=== PATIENT | male | born 1990 | race Caucasian/White ===

== ENCOUNTER 2022-05-11 17:19 | Emergency (ER) | payer SELFPAY ==
[~2022-05-11] VITALS: Ht 175.3 cm; Wt 122.5 kg
[2022-05-11 17:58] LABS: BASOPHILS % (AUTO) 0 % (0-10); EOSINOPHILS # (AUTO) 0.1 10^3/uL (0.0-0.3); EOSINOPHILS % (AUTO) 1 % (0-10); HEMATOCRIT 46 % (40-54); HEMOGLOBIN 15.9 g/dL (13.3-17.7); LYMPHOCYTES # (AUTO) 3.9 10^3/uL (1.0-4.0); LYMPHOCYTES % (AUTO) 42 % (12-44); MEAN CORPUSCULAR HEMOGLOBIN 31 pg (25-34); MEAN CORPUSCULAR HGB CONC 34 g/dL (32-36); MEAN CORPUSCULAR VOLUME 90 fL (80-99); MEAN PLATELET VOLUME 10.9 fL (9.0-12.2); MONOCYTES # (AUTO) 0.7 10^3/uL (0.0-1.0); MONOCYTES % (AUTO) 7 % (0-12); NEUTROPHILS # (AUTO) 4.7 10^3/uL (1.8-7.8); NEUTROPHILS % (AUTO) 50 % (42-75); PLATELET COUNT 282 10^3/uL (130-400); WHITE BLOOD COUNT 9.4 10^3/uL (4.3-11.0)
[2022-05-11 18:02] LABS: PROTHROMBIN TIME PATIENT 13.1 SEC (12.2-14.7)
[2022-05-11 18:09] LABS: ALBUMIN 4.5 GM/DL (3.2-4.5); POTASSIUM 4.1 MMOL/L (3.6-5.0)
[2022-05-11 18:11] LABS: TOTAL PROTEIN 8.2 GM/DL (6.4-8.2)
[2022-05-11 18:13] LABS: BILIRUBIN,TOTAL 0.5 MG/DL (0.1-1.0)
[2022-05-11 18:15] LABS: CREATININE SERUM 1.01 MG/DL (0.60-1.30)
[2022-05-11] MEDS ORDERED: ASPIRIN 81 MG CHEW (CHILDREN'S ASA) PO ONE (18:30)
[2022-05-11] MEDS ORDERED: LIDOCAINE 2% VISCOUS 15 ML UDC PO ONE (18:30)
[2022-05-11] MEDS ORDERED: ANTACID SUSP 30 ML UDC (MYLANTA) PO ONE (18:30)
[2022-05-11] MEDS ORDERED: FAMOTIDINE 20 MG (PEPCID) TABLET PO ONE (18:30)
--- NOTE | 2022-05-11 18:31 | ED Chest Pain ---
General Chief Complaint: Chest Pain Stated Complaint: CP,L SHOULDER/BACK PAIN, SOB Nursing Triage Note: pt ambulatory to room. pt reports having left shoulder and shoulder blade pain since wednesday. pt reports in addition to this pain, today while at work, around 1300, he got chest pain in the sternal area that he rates as a 4 or 5. pt reports the cp has "came and gone" since then and rates it a dull pain, a 1 or 2 now. pt states he has had no injury Source: patient Exam Limitations: no limitations (RODY CARRILLO) History of Present Illness Date Seen by Provider: May 11, 2022 Time Seen by Provider: 17:31 Initial Comments Patient to the ER by private conveyance with chief complaint of chest pain in his substernal chest radiating through to his left shoulder blade been going on since this morning, worse at work. Not any better at rest. It comes and goes about a 1 or 2 out of 10 right now. Worst it is a 4-5 out of 10. Worse when he takes a deep breath or moves around. No history of heart disease, family history of coronary disease. He has no history of hypertension, hyperlipidemia, diabetes. He does not smoke. He does drink usually 10 beers a day with his last beer being on Wednesday. He had his last whiskey drink 6 days ago. He is not having any nausea, vomiting, fevers, diarrhea, rash. No history of COPD but he does have asthma. He took his breathing treatment with no avail. He has a history of GERD and he took his GERD medicines routinely and they did not help. He tried Gas-X and ibuprofen without significant relief of pain. (RODY CARRILLO) Allergies and Home Medications Allergies Coded Allergies: No Known Drug Allergies (Unverified , 05/11/22) Patient Home Medication List Home Medication List Reviewed: Yes (RODY CARRILLO) Review of Systems Review of Systems Constitutional: No chills, No diaphoresis EENTM: No Blurred Vision, No Double Vision Respiratory: Denies Cough, Denies Shortness of Air Cardiovascular: See HPI, Chest Pain; Denies Lightheadedness Gastrointestinal: Denies Abdominal Pain, Denies Blood Streaked Stools, Denies Constipated, Denies Diarrhea, Denies Nausea Genitourinary: Denies Burning, Denies Discharge Musculoskeletal: No back pain, No joint pain (RODY CARRILLO) All Other Systems Reviewed Negative Unless Noted: Yes (RODY CARRILLO) Past Vyfiohc-Rsnxqy-Vncbry Hx Patient Social History Tobacco Use?: No Use of E-Cig and/or Vaping dev: No Substance use?: No (RODY CARRILLO) Physical Exam Vital Signs Vital Signs - First Documented 05/11/22 17:30 Temp 37.1 Pulse 91 Resp 12 B/P (MAP) 161/115 (130) Pulse Ox 96 (CARLOS HOFFMAN MD) Vital Signs Capillary Refill : (RODY CARRILLO) Height, Weight, BMI Height: '" Weight: lbs. oz. kg; 39.00 BMI Method: General Appearance: No Apparent Distress, WD/WN HEENT: PERRL/EOMI, TMs Normal, Pharynx Normal, Moist Mucous Membranes Neck: Normal Inspection, Non Tender Respiratory: No Chest Non Tender; Lungs Clear, Normal Breath Sounds, No A ccessory Muscle Use, No Respiratory Distress Cardiovascular: Regular Rate, Rhythm, Normal Peripheral Pulses Gastrointestinal: Non Tender, Soft Extremity: Normal Capillary Refill, Normal Inspection, No Pedal Edema Neurologic/Psychiatric: Alert, Oriented x3 Skin: Normal Color, Warm/Dry (RODY CARRILLO) Progress/Results/Core Measures Results/Orders Lab Results Laboratory Tests Test 05/11/22 17:45 05/11/22 20:00 Range/Units White Blood Count 9.4 4.3-11.0 10^3/uL Red Blood Count 5.13 4.30-5.52 10^6/uL Hemoglobin 15.9 13.3-17.7 g/dL Hematocrit 46 40-54 % Mean Corpuscular Volume 90 80-99 fL Mean Corpuscular Hemoglobin 31 25-34 pg Mean Corpuscular Hemoglobin Concent 34 32-36 g/dL Red Cell Distribution Width 11.8 10.0-14.5 % Platelet Count 282 130-400 10^3/uL Mean Platelet Volume 10.9 9.0-12.2 fL Immature Granulocyte % (Auto) 0 % Neutrophils (%) (Auto) 50 42-75 % Lymphocytes (%) (Auto) 42 12-44 % Monocytes (%) (Auto) 7 0-12 % Eosinophils (%) (Auto) 1 0-10 % Basophils (%) (Auto) 0 0-10 % Neutrophils # (Auto) 4.7 1.8-7.8 10^3/uL Lymphocytes # (Auto) 3.9 1.0-4.0 10^3/uL Monocytes # (Auto) 0.7 0.0-1.0 10^3/uL Eosinophils # (Auto) 0.1 0.0-0.3 10^3/uL Basophils # (Auto) 0.0 0.0-0.1 10^3/uL Immature Granulocyte # (Auto) 0.0 0.0-0.1 10^3/uL Prothrombin Time 13.1 12.2-14.7 SEC INR Comment 1.0 0.8-1.4 Activated Partial Thromboplast Time 30 24-35 SEC Sodium Level 140 135-145 MMOL/L Potassium Level 4.1 3.6-5.0 MMOL/L Chloride Level 104 98-107 MMOL/L Carbon Dioxide Level 23 21-32 MMOL/L Anion Gap 13 5-14 MMOL/L Blood Urea Nitrogen 17 7-18 MG/DL Creatinine 1.01 0.60-1.30 MG/DL Estimat Glomerular Filtration Rate 103 BUN/Creatinine Ratio 17 Glucose Level 98 70-105 MG/DL Calcium Level 10.0 8.5-10.1 MG/DL Corrected Calcium 9.6 8.5-10.1 MG/DL Magnesium Level 2.0 1.6-2.4 MG/DL Total Bilirubin 0.5 0.1-1.0 MG/DL Aspartate Amino Transf (AST/SGOT) 115 H 5-34 U/L Alanine Aminotransferase (ALT/SGPT) 283 H 0-55 U/L Alkaline Phosphatase 109 40-136 U/L Myoglobin 41.5 10.0-92.0 NG/ML Troponin I < 0.028 < 0.028 <0.028 NG/ML Total Protein 8.2 6.4-8.2 GM/DL Albumin 4.5 3.2-4.5 GM/DL Lipase 22 8-78 U/L (CARLOS HOFFMAN MD) My Orders Orders - CARLOS HOFFMAN MD Lipase (05/11/22 18:19) Troponin I [place] (05/11/22 20:00) (CARLOS HFOFMAN MD) Medications Given in ED Current Medications Medications Dose Ordered Sig/Melchor Route Start Time Stop Time Status Last Admin Dose Admin Al Hydrox/Mg Hydrox/Simethicone 30 ml ONCE ONCE PO 05/11/22 18:30 05/11/22 18:31 DC 05/11/22 18:47 30 ML Aspirin 324 mg ONCE ONCE PO 05/11/22 18:30 05/11/22 18:31 DC 05/11/22 18:46 324 MG Famotidine 20 mg ONCE ONCE PO 05/11/22 18:30 05/11/22 18:31 DC 05/11/22 18:46 20 MG Lidocaine HCl 15 ml ONCE ONCE PO 05/11/22 18:30 05/11/22 18:31 DC 05/11/22 18:47 15 ML (CARLOS HOFFMAN MD) Vital Signs/I&O 05/11/22 05/11/22 17:30 20:47 Temp 37.1 Pulse 91 80 Resp 12 18 B/P (MAP) 161/115 (130) 127/93 Pulse Ox 96 96 (CARLOS HOFFMAN MD) Blood Pressure Mean: 130 Progress Progress Note : Time: 18:28 Progress Note Care of the patient transferred to Dr. Monroe at shift change. We will start with a GI cocktail, aspirin and get a chest x-ray and labs. (RODY CARRILLO) Progress Note : Progress Note GI cocktail resolved his pain. Blood pressure improved with transition of blood pressure cuff from the forearm to the upper arm. Delta troponin was negative. I suspect that his chest pain is caused, at least in part, high acid reflux and esophagitis. His frequent heavy alcohol consumption likely plays a considerable role in this condition. He does take dual antiacid therapy at this time. He is working on alcohol cessation and has not had alcohol in 3 days. We discussed risks and symptoms of alcohol withdrawal. He may be experiencing some mild withdrawal at this time. His hypertension may be related. We also discussed his elevated transaminases and need to follow-up in that regard. Slight chest discomfort did return with movement at the time of discharge. Because the pain was relieved with GI cocktail, pleuritic in nature, and impacted by position changes, is not consistent with a cardiac etiology. See discharge instructions for detailed discussion. (CARLOS HOFFMAN MD) Initial ECG Impression Date: May 11, 2022 Initial ECG Impression Time: 17:32 Initial ECG Rate: 80 Initial ECG Rhythm: Normal Sinus Initial ECG Intervals: Normal Initial ECG Impression: Normal Initial ECG Comparisson: No Previous ECG Available Comment Normal sinus rhythm without clinically relevant ST elevation or depression. (RODY CARRILLO) Diagnostic Imaging Diagonstic Imaging: Xray Plain Films/CT/US/NM/MRI: chest Reviewed: Reviewed by Me (RODY CARRILLO) Comments NAME: IRLANDA VARGAS [facility] REC#: [id number] PT STATUS: REG ER : 1990 PHYSICIAN: RODY CARRILLO MD ADMIT DATE: 05/11/22/ER Draft Date of Exam:05/11/22 CHEST 1 VIEW, AP/PA ONLY EXAMINATION: Chest 1 view HISTORY: Chest pain COMPARISON: None available. FINDINGS: The lungs are clear without edema or pneumonia. No pleural effusion or pneumothorax. Heart size is normal. IMPRESSION: 1. Clear lungs. Dictated on workstation # [id number] Dict: 05/11/22 1835 Trans: 05/11/22 1836 [facility] [phone] Interpreted by: INEZ AMIN MD (CARLOS HOFFMAN MD) Transfer of Care Time: 18:31 Care transferred to: Dr. Monroe (RODY CARRILLO) Departure Impression Primary Impression: Atypical chest pain Additional Impressions: Gastroesophageal reflux Qualified Codes: K21.9 - Gastro-esophageal reflux disease without esophagitis Alcohol abuse, episodic Hypertension Qualified Codes: I10 - Essential (primary) hypertension Elevated liver transaminase level Disposition: 01 HOME, SELF-CARE Condition: Improved Departure-Patient Inst. Decision time for Depature: 20:00 (CARLOS HOFFMAN MD) Referrals: NO,LOCAL PHYSICIAN (PCP/Family) Primary Care Physician Patient Instructions: Acid Reflux, Adult and Adolescent ED, Alcohol Withdrawal, Chest Pain Add. Discharge Instructions: 1. Chest pain - Your chest pain is likely not related to a heart condition. Because it improved with the lidocaine mixture you drink in the ER, it is likely related to acid reflux causing irritation of the esophagus and/or stomach. Frequent alcohol use is likely a contributing factor. Refrain from further alcohol use and continue your antacid medications as previously directed. Additionally avoiding the following may be helpful: Eating large meals, eating close to bedtime, caffeine, carbonation, citrus fruits and juices, tobacco, alcohol, mints, spicy foods, fatty or greasy foods, NSAID medications such as ibuprofen or naproxen, or anything else you know irritates your stomach. 2. High blood pressure - Your high blood pressure may require treatment in the near future. It is possible the high blood pressure is related to alcohol withdrawal. If your blood pressure remains persistently high even after you have abstained from alcohol for a week or two, you may need to be treated for high blood pressure. Please see your primary care provider within the next couple of weeks to discuss this further and have your blood pressure monitored. 3. Elevated liver enzymes - You have mildly elevated liver enzymes on your blood work today. Again, this may be related to alcohol use. This should be followed by your primary care provider and checked again within the next couple of months. 4. Excessive alcohol use -Your frequent and/or excessive alcohol use is likely contributing to your health issues described above. You are encouraged to completely abstain from alcohol. If you are unable to do so, please seek help from your primary care provider and some type of treatment for support entity. Some examples may be your [facility], , etc. Please read the information provided on alcohol withdraw. If you are developing significant symptoms of alcohol withdrawal, please return to the emergency room for prompt evaluation. 5. Please return to the emergency room if you are having any other worsening symptoms that require urgent attention. Generally work toward healthy life changes such as eating a healthy well-balanced diet, abstaining from alcohol, abstaining from tobacco, exercising, getting plenty of sleep, etc. All discharge instructions reviewed with patient and/or family. Voiced understanding. RODY CARRILLO May 11, 2022 18:31 CARLOS HOFFMAN MD May 11, 2022 20:05
--- NOTE | 2022-05-11 18:36 | Diagnostic Imaging Report ---
EXAMINATION: Chest 1 view HISTORY: Chest pain COMPARISON: None available. FINDINGS: The lungs are clear without edema or pneumonia. No pleural effusion or pneumothorax. Heart size is normal. IMPRESSION: 1. Clear lungs. Dictated by: Dictated on workstation # [email or web address]
[2022-05-11 20:47] VITALS: BP 127/93
== END 2022-05-11 20:47 | disposition home or self-care (01) ==
LOC: ER 17:23
DX: K21.9 Gastro-esophageal reflux disease without esophagitis (principal); I10 Essential (primary) hypertension; F10.10 Alcohol abuse, uncomplicated; R74.01 Elevation of levels of liver transaminase levels; Z28.310 Unvaccinated for COVID-19
CPT/HCPCS: 36415; 71045; 80053; 83690; 83735; 83874; 84484; 85025; 85610; 85730; 93005; 93041